=== PATIENT | male | born 1950 | race Caucasian/White ===

== ENCOUNTER 2019-02-11 12:06 | Emergency (ER) | payer OTHER ==
[~2019-02-11] VITALS: Ht 193 cm; Wt 74.8 kg
[~2019-02-11 12:06] MED LIST: ACETAMINOPHEN325 M1 PO; ASPIRIN EC325 M1 PO; ASPIRIN EC81 M1 PO; AUGMENTIN 875875 M1 PO; CAVAN-FOLATE D1 EACH PO; CELEXA 10 MG TA10 M1 PO; COLACE100 MG PO; COZAAR 50 MG TA50 M1 PO; IRON325 PO; KEFLEX500 MG PO; KEPPRA 500 MG500 M1 PO; KEPPRA 500 MG500 MG PO; KLOR-CON 10 ER10 MEQ PO; KLOR-CON 1010 MEQ PO; LASIX 40 MG TAB40 M1 PO; LISINOPRIL10 MG PO; LOPRESSOR25; NICOTINE TRANSD14 M1 TRANSDERM; NYSTATIN15 GM TOP; PLAVIX 75 MG TA75 M1 PO; TOPROL XL25 MG PO; UNASYN 3 GM VIAL3 G1 IV; VITAMIN B-1100 M1 PO; ZOCOR 20 MG TAB20 M1 PO
[2019-02-11 12:22] LABS: BASOPHILS 0.2 % (0.0-2.0); EOSINOPHILS 1.4 % (0.0-3.0); HEMOGLOBIN 15.4 gm/dL (14.0-18.0); LYMPHOCYTES 22.1 % (24.0-44.0); MCH 30.6 pg (26.0-34.0); MCHC 34.2 g/dL (28.0-37.0); MCV 89.5 fL (80.0-100.0); MONOCYTES 7.3 % (1.0-8.0); RBC 5.03 mil/uL (4.50-6.00); WBC 11.7 thou/uL (4.0-11.0)
[2019-02-11 13:04] LABS: ANION GAP 12 mmol/L (7-16); BUN 22 mg/dL (7-18); CALCIUM 8.4 mg/dL (8.5-10.1); CHLORIDE 102 mmol/L (98-107); CO2 23 mmol/L (21-32); GLUCOSE 93 mg/dL (74-106); SODIUM 137 mmol/L (136-145)
[2019-02-11 13:14] LABS: ALBUMIN 3.4 g/dL (3.4-5.0); SGOT 28 U/L (15-37); SGPT 16 U/L (30-65); TOTAL BILIRUBIN 0.3 mg/dL (<0.1-1.0); TOTAL PROTEIN 6.7 g/dL (6.4-8.2); TROPONIN-I <0.06 ng/mL (<0.06)
[2019-02-11 13:17] LABS: URINE BILIRUBIN NEGATIVE (Negative); URINE BLOOD NEGATIVE (Negative); URINE CLARITY CLEAR; URINE COLOR YELLOW; URINE GLUCOSE-RANDOM* NEGATIVE (Negative); URINE KETONES NEGATIVE (Negative); URINE LEUKOCYTES-REFLEX NEGATIVE (Negative); URINE NITRITE-REFLEX NEGATIVE (Negative); URINE PROTEIN (DIPSTICK) NEGATIVE (Negative); URINE SPECIFIC GRAVITY <= 1.005 (1.005-1.035); URINE UROBILINOGEN 0.2 E.U./dl (0.2-1.0)
[2019-02-11 13:24] LABS: PLATELET COUNT 102 thou/uL (150-400); PLATELET ESTIMATE SLIGHTLY DECREASED
[2019-02-11 13:25] LABS: LARGE PLATELETS FEW
[2019-02-11 13:25] LABS: AMP/METHAMP Negative (Negative); BARBITURATES Negative (Negative); BENZODIAZEPINES Negative (Negative); COCAINE Negative (Negative); METHADONE Negative (Negative); OPIATES Negative (Negative); PCP Negative (Negative)
--- NOTE | 2019-02-11 17:18 | EKG ---
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 : 1950 Requested By: Dashawn Castro Order Number: [id number] MD: Arsh Vasquez Measurements Intervals [place] Rate: 54 P: -51 PA: 180 QRS: -63 QRSD: 141 T: 94 QT: 499 QTc: 473 Interpretive Statements Sinus bradycardia Left bundle branch block Baseline wander in lead(s) V4,V5 Compared to ECG 07/28/2016 16:08:20 Ventricular premature complex(es) no longer present Electronically Signed On 02-11-2019 17:17:52 CDT by Arsh Vasquez [email or web address] ��������������������������������������������� <ELECTRONICALLY SIGNED> ���������������������������������������� By: Arsh Vasquez MD, [facility] ��������������������������������������������� 02/11/19 1717 1310 09 Arsh Vasquez MD, [facility] /EPI
[2019-02-11 17:54] VITALS: BP 156/78
== END 2019-02-11 17:57 | disposition home or self-care (01) ==
LOC: ER 12:06
PROVIDERS: Physician Assistant
DX: S09.8XXA Other specified injuries of head, initial encounter (principal); R41.82 Altered mental status, unspecified; F10.129 Alcohol abuse with intoxication, unspecified; F17.210 Nicotine dependence, cigarettes, uncomplicated; I73.9 Peripheral vascular disease, unspecified; J44.9 Chronic obstructive pulmonary disease, unspecified; I25.10 Atherosclerotic heart disease of native coronary artery without angina pectoris; E78.5 Hyperlipidemia, unspecified; Z90.49 Acquired absence of other specified parts of digestive tract; X58.XXXA Exposure to other specified factors, initial encounter; Y92.89 Other specified places as the place of occurrence of the external cause; Y93.89 Activity, other specified; Y99.8 Other external cause status

== ENCOUNTER 2019-04-09 13:39 | Emergency (ER) | payer OTHER ==
[~2019-04-09] VITALS: Ht 193 cm; Wt 73.9 kg
[2019-04-09] MEDS ORDERED: BACTRIM DS TAB1 EACH PO (15:13)
[2019-04-09 16:02] VITALS: BP 155/79
== END 2019-04-09 15:30 | disposition home or self-care (01) ==
LOC: ER 13:39
DX: L02.11 Cutaneous abscess of neck (principal); F17.210 Nicotine dependence, cigarettes, uncomplicated; I73.9 Peripheral vascular disease, unspecified; J44.9 Chronic obstructive pulmonary disease, unspecified; Z90.49 Acquired absence of other specified parts of digestive tract

== ENCOUNTER 2019-07-09 12:50 | Inpatient (IN) | payer OTHER ==
[~2019-07-09] VITALS: Ht 193 cm; Wt 69.4 kg
--- NOTE | ~2019-07-09 | EMS ---
[address] [address] EMS Patient Care Report Name: YUE NOONAN Room #: REG GRETA Suárez#: [id number] Admission: 07/09/19 Attend Phys: Discharge: Date of : 48 Report #: [id number] THIS REPORT FOR: //name// Report Transmitted: 07/09/2019 13:04 EMS Care Summary [facility] MED-ACT Incident [id number] @ 07/09/2019 11:59 Incident Location [address] [place] [address] Patient YUE NOONAN Male, 68 Years 1950 Patient Address [address] [place] [address] Patient History Seizures,Cardiac Condition - Other,Alcohol Abuse, Patient Allergies No known allergies, Patient Medications None Reported, Chief Complaint Left hip pain after fall Disposition Transported No Lights/[place] [facility] Reason Falls Transported To [facility] Narrative Pt is found sitting in a chair in his living room in no acute distress in care of FD. Pt states that he slipped on a puddle of water in his bathroom landing [address] [address] EMS Patient Care Report Name: YUE NOONAN Room #: REG GRETA Suárez#: [id number] Admission: 07/09/19 Attend Phys: Discharge: Date of : 48 Report #: [id number] on his back. Pt states that he crawled back to his chair and waited several minutes before calling EMS. Pt c/o left hip pain and states that the pain has remained. Pt states that he only has pain when he moves. Pt states that he has not tried to bear weight since the fall. Pt denies striking his head or loss of consciousness. Pt denies neck and back pain. Pt is lifted to cot where he is seated and secured without incident. Pt is sheet lifted to ER bed without incident and report to RN. Initial Vitals @PTAP: 73,SpO2: 95,NC Suspected: false @12:30P: 68,SpO2: 93, @12:40P: 70,SpO2: 93, @PTAP: 89,R: 14,BP: 176/79,Pain: 7/10,SpO2: 95,NC Suspected: false @PTAP: 80,R: 14,BP: 156/71,SpO2: 96, @12:35P: 66,R: 16,BP: 177/74,SpO2: 93, @12:25P: 71,R: 14,BP: 178/72,GCS: 15,SpO2: 95,Revised Trauma: 12, Assessments @12:25MENTAL:Person Oriented,Time Oriented,Place Oriented,Event Oriented,SKIN:HEENT:Head/Face: No Abnormalities,Neck/Airway: No Abnormalities,LUNG SOUNDS:General: No Abnormalities,ABDOMEN:General: No Abnormalities,PELVIS//GI:Tenderness,EXTREMITIES:Left Arm: No Abnormalities,Right Arm: No Abnormalities,Left Leg: No Abnormalities,Right Leg: No Abnormalities,PULSE:NEURO:No Abnormalities, Impression Injury of Hip Procedures @12:1512-Lead ECGResponse: UnchangedSucceeded Timeline TRANSPORTATION AGENT,BP: / M,PULSE: 73,RR: R,SPO2: 95 Ox,ETCO2: ,BG: ,PAIN: ,GCS: , TRANSPORTATION AGENT,BP: 176/79 M,PULSE: 89,RR: 14 R,SPO2: 95 Ox,ETCO2: ,BG: ,PAIN: 7,GCS: , TRANSPORTATION AGENT,BP: 156/71 M,PULSE: 80,RR: 14 R,SPO2: 96 Ox,ETCO2: ,BG: ,PAIN: ,GCS: , 11:57,Call Received 11:57,Psap Call 11:59,Dispatched 11:59,En Route 12:09,On Scene 12:13,At Patient 12:15,12-Lead ECG,Response: UnchangedSucceeded, 12:25,BP: 178/72 M,PULSE: 71,RR: 14 R,SPO2: 95 Ox,ETCO2: ,BG: ,PAIN: ,GCS: 15, 12:25,Depart Scene 12:30,BP: / M,PULSE: 68,RR: R,SPO2: 93 Ox,ETCO2: ,BG: ,PAIN: ,GCS: , 12:35,BP: 177/74 M,PULSE: 66,RR: 16 R,SPO2: 93 Ox,ETCO2: ,BG: ,PAIN: ,GCS: , [facility] [address] [place] [place] [address] EMS Patient Care Report Name: YUE NOONAN Room #: REG GRETA Suárez#: [id number] Admission: 07/09/19 Attend Phys: Discharge: Date of : 48 Report #: [id number] 12:40,BP: / M,PULSE: 70,RR: R,SPO2: 93 Ox,ETCO2: ,BG: ,PAIN: ,GCS: , 12:47,At Destination 13:00,Call Closed Disclaimer v1.1 Copyright 2019 [employer] This EMS Care Summary contains data elements from the applicable legal record (which may be displayed differently). It is designed to provide pertinent information for the following purposes: continuity of care, clinical quality, and state data reporting. The complete legal record is available to ED staff and administrators of the receiving hospital in [employer]'s Patient Tracker. All data is provided "as is."
[~2019-07-09 12:50] MED LIST changes: +BACTRIM DS TAB1 EACH PO
[2019-07-09 12:51] VITALS: BP 120/72
[2019-07-09 13:33] LABS: HEMATOCRIT 47.5 % (42.0-52.0); HEMOGLOBIN 15.7 gm/dL (14.0-18.0); MCH 30.6 pg (26.0-34.0); MCV 92.8 fL (80.0-100.0); RBC 5.12 mil/uL (4.50-6.00); RDW 15.4 % (10.5-14.5); WBC 12.7 thou/uL (4.0-11.0)
[2019-07-09 13:35] LABS: URINE BILIRUBIN NEGATIVE (Negative); URINE BLOOD NEGATIVE (Negative); URINE CLARITY CLEAR; URINE COLOR YELLOW; URINE GLUCOSE-RANDOM* NEGATIVE (Negative); URINE KETONES 1+ (Negative); URINE LEUKOCYTES-REFLEX NEGATIVE (Negative); URINE NITRITE-REFLEX NEGATIVE (Negative); URINE PROTEIN (DIPSTICK) TRACE (Negative); URINE SPECIFIC GRAVITY >= 1.030 (1.005-1.035); URINE UROBILINOGEN 0.2 E.U./dl (0.2-1.0)
[2019-07-09 13:40] LABS: CALCIUM 9.3 mg/dL (8.5-10.1); CREATININE 1.2 mg/dL (0.7-1.3); POTASSIUM 4.4 mmol/L (3.5-5.1)
[2019-07-09 13:45] LABS: APTT 29.5 Seconds (24.5-32.8); PROTIME 10.9 Seconds (9.3-11.4)
[2019-07-09 17:12] VITALS: BP 133/64
[2019-07-09 17:32] LABS: CHOLESTEROL 181 mg/dL (<200); HDL CHOLESTEROL 71 mg/dL (>40); LDL CHOLESTEROL 96 mg/dL (<100); TC:HDL 2.5 Ratio (Not establshd); TRIGLYCERIDE 73 mg/dL (<150); VLDL 15 mg/dL (<40)
[2019-07-09 17:33] LABS: SERUM ASSESSMENT Clear
[2019-07-09 17:34] VITALS: BP 137/58
[2019-07-09 17:48] VITALS: BP 154/58
[2019-07-09 17:58] LABS: FOLIC ACID 11.2 ng/mL (8.6-58.9)
--- NOTE | 2019-07-09 18:42 | NUR ---
PATIENT ARRIVED TO UNIT VIA CART TRANSFERRED BY ED STAFF. PATIENT DENIES PAIN EXCEPT WHEN BEING TRANSFERRED FROM CART TO BED. CONSENTS SIGNED, ADMISSION COMPLETED EXCEPT FOR PICTURES OF WOUNDS. WILL PASS TO NEXT SHIFT IN REPORT. FALL PRECAUTIONS IN PLACE, AGREES TO CALL FOR ASSIST.
[2019-07-09 18:59] VITALS: BP 117/47
--- NOTE | 2019-07-10 02:19 | NUR ---
ASSUMED CARE OF PT @1900. PT A&OX4. PT FELL AT HOME IN A BATHTUB, UNTO HIS BOTTOCKS, HE SAID. FALL PREC IN PLACE. CALL CAMPOS WITHIN REACH. PT IS ON BEDREST FOR NOW UNTIL ORTHO SEES HIM. PT C/O OF SHOULDER PAIN, HE DOES NOT REMEMBER FALLING ON HIS SHOULDER. PT STATED IT COULD BE FROM HIM TRYING TO MOVE OVER TO HIS CHAIR AFTER THE FALL. PAIN WAS CONTROLLED WITH NARCO. PT HAS A WOUND IN HIS LEFT GREAT TOE. PT STATED THAT HE PULLED OUT HIS LEFT GREAT TOE WHILE HE WAS TRYING TO TAKE OFF HIS PANTS. PICTURE WAS TAKEN. PT HAS A BRUISED RIGHT ARM. PT BOTTOCKS IS PINK AND BLANCHEABLE, BARRIER CREAM WAS APPLIED. PT IS Q2HR TURN. NO S/S OF DISTRESS. WILL CONT TO MONITOR
[2019-07-10 05:45] VITALS: BP 142/51
[2019-07-10 07:26] VITALS: BP 143/54
--- NOTE | 2019-07-10 10:57 | NUR ---
WOUND CARE CONSULT; THIS ANGRY MAN HAS HAD A FALL IN HIS HOME. HE HAS HX OF A NECK ABCESS AND A SACRAL FRACTURE. WITH A LITTLE HELP AND A WALKER FOR BALANCE HE STOOD VERY WELL. THERE ARE NO WOUNDS TO THE BUTTOCK AREA(S) AND EVERTHING BLANCHES WELL. THE LEFT GREAT TOE IS MISSING THE TOENAIL. HE REPORTS IT WAS NOT FROM THE FALL BUT IN FACT THE TOENAIL CAUGHT ON HIS SOCK A FEW DAYS AGO AND WAS TORN OFF. RECOMMENDATIONS; THE PATIENT DID NOT WANT A BULKY DRESSING, I CHOSE [employer]ERO[employer], COVERED WITH A BANDAID, DAILY/PRN DISCUSSED WITH ILDEFONSO
--- NOTE | 2019-07-10 14:12 | NUR ---
PT ADMITTED RELATED TO SUBTLE NONDISPLACED SACRAL ALA FRACTURE. CM REVIEWED CHART AND SPOKE WITH CARE TEAM. CM MET WITH PT AT BEDSIDE THIS DAY. PT IS A&O X4. CM ROLE INTRODUCED. PT INDICATED HE HAD BEEN LIVING IN AN APARTMENT WITH HIS SISTER MEAL ROOM HAND. PT INDICATED HE HAD USED A CANE TO ASSIST WITH MOBILTIY MEAL ROOM HAND. PT INDICATED NO PCP OR HH HX. CM INDICATED THAT [facility] SHOWED THAT PT HAD BEEN TO [facility] IN THE PAST BUT PT DIDN'T RECALL EVER HAVING BEEN THERE. PT INDICATED HE PLAND TO RETURN HOME WITH HIS SISTER ONCE MEDICALLY STABLE. CM CALLED PT'S SISTER AND LEFT VM. 5N ASSESSED PT FOR POSSIBLE ADMISSION BUT THEY INDICATED THAT SNF WOULD BE MORE APPROPRIATE. CM TO FOLLOW INDICATED WITH DC PLANNING.
--- NOTE | 2019-07-10 14:13 | NUR ---
PATIENT WAS SEEN BY ZAC MORRIS NP WITH DR. HIRSCH. PATIENT DOES NOT HAVE A REHAB DX AND SNF WAS RECOMMENDED D/C LOCATION. THIS INFORMATION WAS RELAYED TO [facility]. THANK YOU FOR THIS REFERRAL.
[2019-07-10 19:35] VITALS: BP 126/49
--- NOTE | 2019-07-10 20:12 | NUR ---
Assumed pt care this am, pt is alert and oriented x4 but is very forgetful and not consistent with his train of throught. Left big toe nail was noted to be a wound and nail was removed, seed by woundcare and dressing done. Pt denies any pain just a slight discomfort, when pain medicationms were offered pt refused. Pt sat in his recliner for most ofthe day. Was seen by Chan in the am, was asked to put pt on NPO consent signed for Jumana to do an abdominal aortogram w/ the lower left leg: possible percutaneous transluminal angioplasty and/ or stent, this did not push through. Placed back on a regular diet and this was well tolereated. POC followed, no signs or verbalizations of distress have been noted.
--- NOTE | 2019-07-11 03:55 | NUR ---
assessment completed. pt A&OX4. pt was irritated that we had to clean him up for incont of urine. x1 does of thiamine infusion was administered. pt accidentally pulled out his iv. pt stated it was itching, so he went to scratch, and it came off per pt. a new iv was placed on pt right forearm. pt has been both incont and using the urinal overnight. pt mentioned going out for a cigarette, education was done and pt accepted to get nicotin patch. order for nicotin 21mg patch was recieved. no c/o pain overnight. toe dressing intact. no s/s of distress. fall prec in place. call light within reach. ciwa score O.
[2019-07-11 05:44] LABS: ABSOLUTE NEUTROPHILS 6.7 thou/uL (1.4-8.2); BASOPHILS 0.4 % (0.0-2.0); EOSINOPHILS 3.9 % (0.0-3.0); HEMATOCRIT 42.7 % (42.0-52.0); HEMOGLOBIN 14.2 gm/dL (14.0-18.0); LYMPHOCYTES 9.4 % (24.0-44.0); MCHC 33.4 g/dL (28.0-37.0); MONOCYTES 4.4 % (1.0-8.0); PLATELET COUNT 72 thou/uL (150-400); POLYS 81.9 % (36.0-66.0); RBC 4.59 mil/uL (4.50-6.00); RDW 15.5 % (10.5-14.5); WBC 8.2 thou/uL (4.0-11.0)
[2019-07-11 06:24] LABS: ALBUMIN 3.1 g/dL (3.4-5.0); CALCIUM 8.3 mg/dL (8.5-10.1); MAGNESIUM 1.7 mg/dL (1.8-2.4); PHOSPHORUS 2.5 mg/dL (2.5-4.9); POTASSIUM 3.9 mmol/L (3.5-5.1); TOTAL BILIRUBIN 0.7 mg/dL (<0.1-1.0); TOTAL PROTEIN 6.4 g/dL (6.4-8.2)
[2019-07-11 08:30] VITALS: BP 151/70
--- NOTE | 2019-07-11 09:44 | 2DMMODE ---
[facility] [employer] [place] [address] 2 D/M-MODE ECHOCARDIOGRAM Name: SARANYUE Room #: 453-P ADM IN M.R.#: [id number] Admission: 07/09/19 Attend Phys: Colleen Roe, Discharge: Date of : 48 Report #: [id number] THIS REPORT FOR: //name// APPROVED REPORT Study performed: 07/11/2019 08:24:27 EXAM: Comprehensive 2D, Doppler, and color-flow Echocardiogram Patient Location: Echo lab Room #: 453 Status: routine BSA: 1.98 HR: 69 bpm BP: 126/49 mmHg Rhythm: NSR/PVCs Indications Hx of cardiomyopathy. Hx: CABG, COPD, PVD, Aflutter, HTN, HLP, ETOH and Tob abuse. 2D Dimensions RVDd: 35.98 mm IVSd: 12.00 (7-11mm) LVOT Diam: 22.16 (18-24mm) LVDd: 62.00 mm PWd: 12.00 (7-11mm) LVDs: 51.24 (25-40mm) Aortic Root: 37.11 mm Volumes Left Atrial Volume (Systole) Single Plane 4CH: 42.24 mL Single Plane 2CH: 59.30 mL LA ESV Index: 28.00 mL/m2 Aortic Valve AoV Peak Cristian.: 2.47 m/s AO Peak Gr.: 9.99 mmHg LVOT Max P.31 mmHg AO Mean Gr.: 17.54 mmHg AO V2 Mean: 2.02 m/s LVOT Max V: 0.91 m/s AO V2 VTI: 59.68 cm ESAU Vmax: 1.42 cm2 Mitral Valve E/A Ratio: 0.4 MV Decel. Time: 227.94 ms MV E Max Cristian.: 0.34 m/s [facility] [id number] [place] [address] 2 D/M-MODE ECHOCARDIOGRAM Name: SARAN,YUE Room #: 453-P [facility] IN .R.#: [id number] Admission: 07/09/19 Attend Phys: Colleen Roe, Discharge: Date of : 48 Report #: [id number] MV A Cristian.: 0.76 m/s MV PHT: 66.10 ms IVRT: 96.89 ms Pulmonary Valve PV Peak Cristian.: 0.96 m/s PV Peak Gr.: 3.66 mmHg Tricuspid Valve TR Peak Cristian.: 2.71 m/s RAP Estimate: 5.00 mmHg TR Peak Gr.: 29.46 mmHg PA Pressure: 34.00 mmHg Left Ventricle Left ventricle is moderately dilated. global hypokinesis Mild concentric left ventricular hypertrophy. Left ventricular systolic function is moderately decreased. LVEF is 40%. Mild diastolic dysfunction is present (impaired relaxation pattern). Right Ventricle The right ventricle is normal size. The right ventricular systolic function is normal. Atria The left atrium size is normal. The right atrium size is normal. Aortic Valve Aortic valve leaflets are mildly thickened and calcified. Moderate to severe aortic regurgitation There is mild valvular aortic stenosis. Calculated aortic valve area is 1.4 cm2 with maximum pressure gradient of 24 mmHg and mean pressure gradient of 18 mmHg. Mitral Valve Mitral valve leaflets are thickened and calcified. Severe mitral regurgitation. No evidence of mitral valve stenosis. Tricuspid Valve The tricuspid valve is normal in structure. Mild tricuspid regurgitation. Estimated PAP is 35mmHg. Pulmonic Valve The pulmonary valve is normal in structure. Trace pulmonic regurgitation. Great Vessels The aortic root is normal in size. Ascending aorta is not well [address] [address] 2 D/M-MODE ECHOCARDIOGRAM Name: SARAN,YUE Room #: 453-P [facility] IN .R.#: [id number] Admission: 07/09/19 Attend Phys: Colleen Roe, Discharge: Date of : 48 Report #: [id number] visualized. IVC is normal in size and collapses >50% with inspiration. Pericardium There is no pericardial effusion. <Conclusion> Left ventricle is moderately dilated. LVEF is 40%. global hypokinesis Aortic valve leaflets are mildly thickened and calcified. Moderate to severe aortic regurgitation There is mild valvular aortic stenosis. Calculated aortic valve area is 1.4 cm2 with maximum pressure gradient of 24 mmHg and mean pressure gradient of 18 mmHg. Mitral valve leaflets are thickened and calcified. Severe mitral regurgitation. The tricuspid valve is normal in structure. Mild tricuspid regurgitation. Estimated PAP is 35mmHg. The pulmonary valve is normal in structure. Trace pulmonic regurgitation. There is no pericardial effusion. <ELECTRONICALLY SIGNED> By: Praveen Chun MD 07/11/1944 2 Praveen Chun MD /INF
--- NOTE | 2019-07-11 16:48 | NUR ---
PT REFUESED SKILLED RHEAB UPON DC INDICATING HE WON'T GO TO A FACILITY FOR REHAB. CM CAN'T GET A HOLD OF HIS SISTER OR EX-. CM SENT REFERAL FOR SERVICES TO [facility] PHONE: FAX: .
--- NOTE | 2019-07-11 17:25 | NUR ---
FAXED REFERRAL TO [facility] RECEIVED CONFIRMATION. POSS DC OVER WEEKEND.
--- NOTE | 2019-07-11 19:55 | NUR ---
Assumed pt care this am, confusion is not a severe as compared to yesteday. Pt complained of pain when he was moved , managed with pain medications. Spent most part of his day on the recliner, refuses to have lunch or breakfast and would only have coffee then his dinner. No other signs of distress have been noted, POC followed, according to Dr. Roe pt refused the procedure yesterday unit was not informed, but agreed to do it today Dr. Denney is not in and will be back on Sunday informed Dr. Roe as well.
[2019-07-11 20:33] VITALS: BP 140/59
--- NOTE | 2019-07-11 22:48 | NUR ---
Pt. c/o sacral pain and was given po pain med with some relief noted. Assisted up from chair to bed with two person,gait belt and walker. Bed alarm on.
--- NOTE | 2019-07-12 00:21 | NUR ---
THIS NURSE ACCEPTED CARE OF PATIENT AT APPROXIMATELY 2300 DUE TO PREVIOUS NURSE BEING REASSIGNED. PATIENT REMAINS IN THE BED ASLEEP. ALL MEDS UP TO THIS TIME GIVEN BY PREVIOUS NURSE. WILL MONITOR.
--- NOTE | 2019-07-12 04:08 | NUR ---
PATIENT ALERT AND ORIENTED X4. DENIES PAIN. COOPERATIVE WITH CARE. RESTING QUIETLY THROUGHOUT THE NIGHT. SCD'S IN PLACE. WILL MONITOR.
[2019-07-12 04:52] VITALS: BP 139/49
[2019-07-12 08:00] VITALS: BP 141/55
[2019-07-12 10:32] LABS: HEMATOCRIT 44.7 % (42.0-52.0); HEMOGLOBIN 14.9 gm/dL (14.0-18.0); MCH 30.7 pg (26.0-34.0); MCHC 33.2 g/dL (28.0-37.0); MCV 92.5 fL (80.0-100.0); RBC 4.83 mil/uL (4.50-6.00); RDW 15.4 % (10.5-14.5)
[2019-07-12 10:41] LABS: AMP/METHAMP Negative (Negative); BARBITURATES Negative (Negative); BENZODIAZEPINES Negative (Negative); COCAINE Negative (Negative); METHADONE Negative (Negative); OPIATES POSITIVE (Negative); PCP Negative (Negative)
[2019-07-12 10:46] LABS: CALCIUM 9.2 mg/dL (8.5-10.1); CREATININE 1.2 mg/dL (0.7-1.3); PHOSPHORUS 3.3 mg/dL (2.5-4.9); POTASSIUM 4.3 mmol/L (3.5-5.1)
--- NOTE | 2019-07-12 11:50 | EKG ---
[address] [address] ELECTROCARDIOGRAM REPORT Name: YUE NOONAN Room #: 437-P ADM IN M.R.#: [id number] Admission: 07/09/19 Attend Phys: Colleen Roe MD Discharge: Date of : 48 Report #: [id number] THIS REPORT FOR: //name// [facility] Test Date: 2019-07-11 Test Time: 09:01:34 Pat Name: YUE NOONAN Department: Room: [facility] Gender: M [place] [place] Cleaner: PASCUAL : 1950 Requested By: Colleen Roe Order Number: [id number] MD: Arsh Vasquez Measurements Intervals [place] Rate: 69 P: 66 SD: 192 QRS: -56 QRSD: 132 T: 100 QT: 432 QTc: 463 Interpretive Statements Sinus rhythm Left bundle branch block Compared to ECG 02/11/2019 13:10:35 Sinus bradycardia no longer present Electronically Signed On 07-12-2019 11:50:10 CDT by Arsh Vasquez [email or web address] <ELECTRONICALLY SIGNED> By: Arsh Vasquez MD, [facility] 07/12/19 1150 09 0 Arsh Vasquez MD, [facility] /EPI
[2019-07-12 15:00] VITALS: BP 117/59
[2019-07-12 19:22] VITALS: BP 128/65
--- NOTE | 2019-07-12 19:43 | NUR ---
Assumed pt care this am vs stable, pain was verbalized with movement, managed with medication. Pt stayed on his recliner for most fo the day. Uses the urinal but would miss at times and be incontinent. No other signs of distress have been noted, POC followed, endorsed to the night nurse.
--- NOTE | 2019-07-13 04:31 | NUR ---
Pt. rested quietly at intervals during the night when checked on during frequent rounds. He was given po pain med (see emar) for c/o sacral pain with some relief noted. Bed alarm is on.
[2019-07-13 10:11] VITALS: BP 140/55
[2019-07-13 15:44] VITALS: BP 140/72
--- NOTE | 2019-07-13 17:21 | NUR ---
Assumed pt care this am, pt was pleasant and cooperative. Pt did complain of pain when he moved medication was given and pain managed. Pt opted to stay in bed for most of the day. Used the urinal, no BM was noted miralax given hydration encouraged. Pt is to be on NPO midnight onwards for possible stenting tomorrow w/ Dr. Denney. Endorsed to the pm nurse to call IR department for the schedule and to inform Dr. Roe if procedure will push through since pt will be NPO. CIWA assessment done no significant scores were noted no medication was or is needed or given. POC followed no signs or verbalizations of distress have been noted. Pt is informed of the plan for tomorrow.
[2019-07-13 19:20] VITALS: BP 139/68
[2019-07-14] VITALS (11 sets, daily range): BP systolic 97–166; BP diastolic 60–77
--- NOTE | 2019-07-14 04:17 | NUR ---
Pt. rested quietly during the night when checked on during frequent rounds. Pt. was offered po pain medication during the shift, but he refused. Pt. says he is in pain only when he moves. Pt. encouraged to call if he needed anything for pain. He has been using the urinal. Bed alarm is on.
[2019-07-14 06:06] LABS: ABSOLUTE NEUTROPHILS 4.1 thou/uL (1.4-8.2); BASOPHILS 0.5 % (0.0-2.0); EOSINOPHILS 4.4 % (0.0-3.0); HEMATOCRIT 43.5 % (42.0-52.0); HEMOGLOBIN 14.6 gm/dL (14.0-18.0); LYMPHOCYTES 20.8 % (24.0-44.0); MCHC 33.6 g/dL (28.0-37.0); MCV 92.2 fL (80.0-100.0); MONOCYTES 8.5 % (1.0-8.0); POLYS 65.8 % (36.0-66.0); RBC 4.72 mil/uL (4.50-6.00); RDW 15.5 % (10.5-14.5); WBC 6.3 thou/uL (4.0-11.0)
[2019-07-14 06:30] LABS: ALBUMIN 3.1 g/dL (3.4-5.0); CALCIUM 9.3 mg/dL (8.5-10.1); CREATININE 1.1 mg/dL (0.7-1.3); PHOSPHORUS 4.3 mg/dL (2.5-4.9); POTASSIUM 4.6 mmol/L (3.5-5.1); TOTAL BILIRUBIN 0.6 mg/dL (<0.1-1.0); TOTAL PROTEIN 7.1 g/dL (6.4-8.2)
[2019-07-14 08:59] LABS: LARGE PLATELETS FEW; PLATELET COUNT 90 thou/uL (150-400); PLATELET ESTIMATE DECREASED
--- NOTE | 2019-07-14 09:18 | NUR ---
Received awake on bed. On room air. A+O to self and place, possible early dementia. Able to use urinal to pass urine. With SL at R FA- intact and flushing well. On CIWA monitoring- patient scoring 0. With wound at R toe nail- dressing to be changed and photo to be taken. Vital signs stable. As per material handler 1st shift nurse, to confirm with IR re: Arteriogram schedule, pt was placed on NPO this AM as reported. Called in IR and spoke to staff, she mentioned that pt is not listed for today, possibly to have it done as outpatient but to confirm with Dr Dugan; Called Dr Dugan's office to confirm re: Arteriogram schedule- pt updated. Assisted in ADLs.
--- NOTE | 2019-07-14 09:23 | NUR ---
SPOKE WITH INTAKE AT [facility] THEY DO NOT SERVE THE [place] SIDE WHICH IS WHERE PT IS DISCHARGING TO HIS SISTER'S HOUSE. DCP TO FOLLOW.
--- NOTE | 2019-07-14 13:51 | NUR ---
WOUND CARE F/U; THE TOE WOUND IS 50% BETTER. NO PAIN, NO S/S OF INFECTION. PT IS PLEASANT AND COORPERATIVE. RECOMMENDATION; CONTINUE CURRENT WOUND POC. DISCUSSED WITH RN
--- NOTE | 2019-07-14 14:03 | NUR ---
CM HAD LEFT VOICEMAILS FOR PT'S SISTER AND HIS EX- SUNDAY OF LAST WEEK AND CM HASN'T HEARD BACK FROM THEM OF THIS NOTE. CM CALLED BOTH AGAIN THIS MORNING AND LEFT ADDITIONAL VOICEMAILS. STILL NO RESPONSE. CARE TEAM WERE LOOKING TO DO AN ANGIOGRAM TODAY. CM TO FOLLOW INDICATED WITH DC PLANNING.
[2019-07-15 07:38] VITALS: BP 138/59
--- NOTE | 2019-07-15 08:51 | NUR ---
progress pt alert oriented x 3 reports pain to sacrum at a rate of 5 hydrocodone given with effect pt slept after repositioned q2h. incontinent of urine x 2 tolerating diet and good po intake continue poc.
--- NOTE | 2019-07-15 10:11 | NUR ---
Received awake on bed. Due medications given as prescribed, able to swallow meds w/o difficulty. A+O, on and off confusion- ?early dementia, pt re-oriented from time to time. On room air. With NS1/2 at 75cc/hr, infusing well at L FA- swelling noted, IV removed, tried to re-site but pt's vein keeps on collapsing- called in IV nurse to help with re-insertion. Assisted in ADLs. Occassional incontinence noted. Vital signs stable. Checked post arteriogram site from yesterday, dressing currently C/D/I, no hematoma noted. No complaints of pain made upon assessment this AM. Dr Rick update re: pt's consult with DR Scott- still a/w for him to see pt today, and informed her that we still can't contact pt's DPOA/relatives.
[2019-07-15 13:40] VITALS: BP 150/57
--- NOTE | 2019-07-15 14:45 | NUR ---
Nutrition: REC consider start vitamin with folic acid due to daily ETOH hx.
--- NOTE | 2019-07-15 16:24 | NUR ---
PT HAD ANGIOGRAM DONE YESTERDAY. THEY HAVE CONSULTED [facility]. CM STILL UNABLE TO REACH SISTER OR EX-. CM TO FOLLOW INDICATED WITH DC PLANNING.
[2019-07-15 19:20] VITALS: BP 103/55
--- NOTE | 2019-07-16 03:56 | NUR ---
Assumed pt care at 1900. Pt is A/OX2,and fussy didn't want to answer much on assessment. Incontinent of urine. Up with AX1 RW/GB from recliner to bed. VSS.Denied pain on assessment. IVF infusing without problems. Fall precautions in place,will continue to monitor pt.
[2019-07-16 06:27] LABS: HEMATOCRIT 42.2 % (42.0-52.0); HEMOGLOBIN 14.1 gm/dL (14.0-18.0); MCH 30.7 pg (26.0-34.0); MCHC 33.3 g/dL (28.0-37.0); MCV 92.1 fL (80.0-100.0); RBC 4.58 mil/uL (4.50-6.00); WBC 9.9 thou/uL (4.0-11.0)
[2019-07-16 06:48] LABS: CALCIUM 9.2 mg/dL (8.5-10.1); CREATININE 1.1 mg/dL (0.7-1.3)
[2019-07-16 08:26] VITALS: BP 137/59
--- NOTE | 2019-07-16 11:30 | NUR ---
WOUND CARE F/U; THE LEFT GREAT TOE WOUND IS MARKEDLY IMPROVED. NO S/S OF INFECTION. RECOMMENDATION; CONT. POC RN NOTIFIED
--- NOTE | 2019-07-16 11:57 | NUR ---
Received awake on bed. Due medications given as prescribed. A+O to self and place, early dementia. On room air. Incontinent of urine- pt checked regularly and changed as needed. With SL at R FA- intact and flushing well. With dressing at R groin- post arteriogram, dressing removed, area cleaned and changed to bandaid as ordered. With L toe wound- cleaned and dressing changed by wound nurse. Encouraged and assisted in eating, drinking and ADLs. Vital signs stable. Pt seen by PT today, tolerated session well, able to walk around the hallway, sat out on the chair. Dr Rick informed that pt's confusion getting worse, occassionally becomes frustrated, refusing therapies or staff. Pt assessed for pain, denies and refuses pain medications; offered pain meds frequently as needed.
--- NOTE | 2019-07-16 13:09 | NUR ---
PALOMA WAS FINALLY ABLE TO GET A HOLD OF PT'S EX- EBER. SHE INDICATED THAT SHE DIDN'T THINK THAT PT HAD FORMAL DPOA. SHE INDICATED THAT SHE WOULD BE WILLING TO BE PT'S DPOA. PALOMA REACHED OUT TO DR. BOURGEOIS TO SEE IF SHE FELT THAT PT WOULD BE ABLE TO ELECT A DPOA AT THIS TIME. AWAITING RESPONSE. PALOMA CONVEYED TO EBER THAT CARE TEAM ARE RECOMMENDING POST ACUTE CARE STAY TO IMPROVE MOBILITY. SHE INDICATED THAT SHE WOULD BE AGREEABLE WITH PT GOING SKILLED AND STATED THAT SHE WOULD COME VISIT WITH PT HERE AND DISCUSS POST DC PLANNING. CM TO FOLLOW INDICATED WITH DC PLANNING.
[2019-07-16 15:35] VITALS: BP 145/54
[2019-07-16 19:30] VITALS: BP 147/62
--- NOTE | 2019-07-17 05:09 | NUR ---
Assumed pt care at 1900. A/OX2-3,able to make needs known. VSS.Denies pain on assessment. Up with moderate assist w/RW and GB. Incontinent of B&B,gets irritable easily especially with ADLs but easily redirected. Fall precautions in place,call light/personal items within reach. Will continue to monitor pt.
[2019-07-17 09:45] VITALS: BP 98/73
--- NOTE | 2019-07-17 10:22 | NUR ---
Folate level borderline low. Recommend start vitamin
--- NOTE | 2019-07-17 16:24 | NUR ---
CM VISITED WITH PT AGAIN THIS MORNING AND INDICATED THAT CARE TEAM ARE RECOMMENDING POST ACUTE CARE STAY. CM PROVIDED LIST OF FACILITIES TO REVIEW. CM INDICATED THAT CM HAD BEEN ABLE TO SPEAK WITH EBER HIS EX-. PT INIDCATED IT WAS OK FOR CM TO SHARE INFO WITH HER. CM INDICATED THAT CM HAD TOLD EBER ABOUT PT NEEDING POST ACUTE CARE STAY AND THAT SHE INDICATED SHE WOULD ASSIST PT IN SELECTING ONE. CM TO FOLLOW INDICATED WITH DC PLANNING.
[2019-07-17 17:00] VITALS: BP 141/69
--- NOTE | 2019-07-17 18:21 | HC ---
[facility] [place] [address] CONSULTATION Name: YUE NOONAN Room #: 437-P [facility] IN .R.#: [id number] Admission: 07/09/19 Attend Phys: Colleen Roe MD Discharge: Date of : 48 Report #: [id number] THIS REPORT FOR: //name// CC: APRIL physician/PCP Colleen ROBBINS PCP DATE OF SERVICE: 07/16/2019 CHIEF COMPLAINT: Traumatic injury to the left great toe with underlying peripheral arterial disease. HISTORY OF PRESENT ILLNESS: This is a 68-year-old male patient with a history of severe coronary artery disease and peripheral arterial disease, who was admitted to the hospital on 07/09/2019 after a fall. He apparently avulsed his left great toenail causing some bleeding and ulceration to the nail bed as well as sustained a nondisplaced bilateral sacral ala fractures. He has undergone angiography during his stay that demonstrated a chronic long segment heavily calcified occlusion of the left superficial femoral artery and upper popliteal artery that was unable to be recanalized. Suggestion was made that if revascularization were required that fem-pop bypass would be indicated. I was asked to evaluate his toe wound with regards to likelihood of healing or necessity of additional vascular surgical intervention. PAST MEDICAL HISTORY: Significant for coronary artery disease, severe peripheral arterial disease with multiple stents, tobacco abuse, COPD, hypertension, congestive heart failure, atrial fibrillation, chronic osteomyelitis of the foot, chronic thrombocytopenia secondary to alcohol abuse, hyperlipidemia, acute kidney injury, aspiration pneumonia, alcohol abuse, depression, previous subdural hematoma in 2014 and previous history of seizures. ALLERGIES: No known drug allergies. SOCIAL HISTORY: Positive for daily alcohol use and smoking cigarettes 1-1/2 packs per day for 40 years. FAMILY HISTORY: Noncontributory. REVIEW OF SYSTEMS: CONSTITUTIONAL: The patient denies fever, chills or weight loss. NEUROLOGICAL: The patient denies focal weakness. ENT: The patient denies earache, nasal drainage or sore throat. CARDIOVASCULAR: The patient denies chest pain or palpitations or diaphoresis. PULMONARY: The patient denies cough or shortness of breath. GASTROINTESTINAL: The patient denies nausea, vomiting, diarrhea or abdominal pain. [facility] [address] [place] [address] CONSULTATION Name: YUE NOONAN Room #: 437-P [facility] IN M.R.#: [id number] Admission: 07/09/19 Attend Phys: Colleen Roe MD Discharge: Date of : 48 Report #: [id number] ORTHOPEDIC: The patient does complain of some mild pelvic pain. Denies pain in his legs or foot. Other systems in a 14-point review of systems are negative. PHYSICAL EXAMINATION: VITAL SIGNS: At this time include temperature 36.4, pulse 80, respiratory rate 16, blood pressure 137/59. GENERAL: This is a somewhat chronically ill-appearing male patient who appears to be in no distress. HEENT: Head normocephalic. Nose and throat clear. NECK: Supple. LUNGS: Clear. ABDOMEN: Soft. Bowel sounds present. EXTREMITIES: Examination of the lower extremities demonstrates skin is pink, warm and dry with good capillary refill. The left great toenail is examined. The nail bed appears to be clean and granulating and showing new signs of epithelialization and no evidence of infection. No necrosis noted at this time. NEUROLOGIC: The patient is alert and oriented, moving all 4 extremities. LABORATORY DATA: White blood cell count 9.9 with hemoglobin of 14.1, hematocrit 42.2. Sodium 136, potassium 4.0, chloride 102, CO2 of 24, BUN 19, creatinine 1.1, glucose 108, total protein 7.1, albumin 3.1. INR is 1.0. CLINICAL IMPRESSION: 1. Traumatic wound to the left great toe nail bed, following avulsion of the great toenail. 2. Severe peripheral arterial disease. 3. History of ethanol abuse. 4. Chronic obstructive pulmonary disease. 5. Coronary artery disease. 6. Mild protein-calorie malnutrition. 7. Nondisplaced bilateral sacral ala fractures. RECOMMENDATIONS: At this point in time, I think local topical care to the left great toe would be appropriate, topical Xeroform gauze, covered by a Band-Aid would be very appropriate and likely this is going to go on to heal. The patient states that he does not wish to have any further invasive interventions and does not wish to have a surgical bypass of his legs. I think that at this point in time, the toe will heal, although he could certainly be in jeopardy in the future for nonhealing ulcerations or for worsening of his peripheral arterial disease. At this point, we will recommend nutritional support, continuation of current medications, physical therapy as he can tolerate. [address] [address] CONSULTATION Name: YUE NOONAN Room #: 437-P ADM IN M.R.#: [id number] Admission: 07/09/19 Attend Phys: Colleen Roe MD Discharge: Date of : 48 Report #: [id number] Reviewed findings with Dr. Scott. I appreciate being asked to see him in consultation. <ELECTRONICALLY SIGNED> By: Nils Barbosa MD 07/17/19 1821 [id number] Nils Barbosa MD /nt
--- NOTE | 2019-07-17 19:35 | NUR ---
Received pt from post op, 4 lap sites clean dry and intact. Admission done, IV fluids initiated. SCD's bilateral put on as well. Pt started on clear liquids and is tolerating well. POC followed. vs stable no signs or verbalizations of distress have been noted.
[2019-07-17 19:44] VITALS: BP 136/57
--- NOTE | 2019-07-17 19:48 | NUR ---
Assumed pt care this am still fussy and resistant to any activity that PT or OT would offer, was able to cnovince pt to have a sponge bath with OT. Pt is alert to self and place bout would forget recent events. Uses the urinal but would miss an be incontinent at times and not know or call. Had an accidental BM while working with PT today in the am. Wound care done, POC followed pt denies any pain and not signs of distress have been noted.
--- NOTE | 2019-07-18 02:28 | NUR ---
ASSUMED CARE AROUND 1900. AXOX3. C/O L SHOULDER PAIN. UNABLE TO LIFE THE LUE. 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 XR IN AM. NO S/S ACUTE DISTRESS NOTED OR REPORTED AT THIS TIME. WILL CONT TO MONITOR FOR ANY CHANGES IN CONDITION.
[2019-07-18 07:25] VITALS: BP 149/70; BP 150/67
--- NOTE | 2019-07-18 15:48 | NUR ---
DISCHARGE PLANNING. PATIENT IS READY FOR DISCHARGE. POST ACUTE RECOMMENDED. PATIENT REFERRAL FAXED TO [facility] PER REQUEST. CALL PLACED TO JANET TO NOTIFY. JANET TO REVIEW AND NOTIFY.
--- NOTE | 2019-07-18 16:10 | NUR ---
DISCHARGE PLANNING. PATIENT IS READY FOR DISCHARGE TODAY. PATIENT REFERRAL FAXED TO [facility] OF [facility] PER REQUEST. CALL RECEIVED FROM JANET STATING THAT THEY ARE UNABLE TO ACCEPT PATIENT BACK TO [facility]. UNIT SW NOTIFIED.
--- NOTE | 2019-07-18 17:01 | NUR ---
dpoa paperwork completed with ex-. on chart. referral sent to [facility] won't accept. will reach out to exwife to find out where else they want referrals sent.
[2019-07-18 18:44] VITALS: BP 141/51
[2019-07-18 19:50] VITALS: BP 113/41
--- NOTE | 2019-07-18 20:12 | NUR ---
Assumed pt care today, vs have been stable and has a better appetite today. Fluids encouraged. Pt was able to wotk withj PT and walk the halls. Pt is still incontinent of both bowel and bladder. Ex came in worked with CM to be the DPOA , awaiting placement at this point. No signs or verbalizations of distress have been noted, Pt is still confused but pleasant. POC gerawed, endorsed the ex-wifes contact number to the nurse.
--- NOTE | 2019-07-19 03:12 | NUR ---
ASSUMED CARE ISAÍAS 193. AXOX2. NO S/S ACUTE DISTRESS NOTED OR REPORTED AT THIS TIME. WILL CONT TO MONITOR FOR ANY CHANGES IN CONDITION.
[2019-07-19 08:00] VITALS: BP 134/54
[2019-07-19 13:51] VITALS: BP 117/51
--- NOTE | 2019-07-19 17:45 | NUR ---
Assumed patient care at 0715. Patient has complained of pain, level five but has not wanted pain medication because the pain is relieved by repositioning. Vital signs have been stable, lung sounds are diminished with Rhonchi noted in the right garcia. Patient is alert et oriented x's 2. He is incontinent of urine; matheus care has been completed upon each incontinent episode; skin is clean, warm, dry et intact. Patient has been transferring from bed to chair with assist x's 1. He consumed 90% of breakfast and 100% of lunch; he refused dinner. IV in right forearm is patent. Will continue to monitor.
[2019-07-19 20:38] VITALS: BP 141/53
--- NOTE | 2019-07-20 04:35 | NUR ---
ASSUMED CARE OF PT @1915. PT A&O BUT CONFUSED. INSERTED NEW IV TO LEFT FOREARM. PT SLEPT IN CHAIR FOR HALF OF THE NIGHT, THEN TRANSFERED BACK TO BED WITH STANDBY ASSIST AND A WALKER. PT USES THE URINAL AND CAN BE INCONT. FALL PREC IN PLACE. CALL LIGHT WITHIN REACH AND EDUCATION WAS DONE ON USING THE CALL CAMPOS. V/S STABLE. NO S/S OF DISTRESS. NO C/O PAIN. WILL CONT TO MONITOR
[2019-07-20 07:27] VITALS: BP 123/57
--- NOTE | 2019-07-20 07:56 | HC ---
[facility] [place] [place] [address] CONSULTATION Name: YUE NOONAN Room #: 437-P [facility] IN M.R.#: [id number] Admission: 07/09/19 Attend Phys: Colleen Roe MD Discharge: Date of : 48 Report #: [id number] THIS REPORT FOR: //name// CC: [facility] physician/PCP Colleen ROBBINS PCP DATE OF SERVICE: 07/14/2019 We were asked to see the patient after a catheterization by Dr. Dugan. The patient has lower extremity arterial occlusive disease with total occlusion of the left superficial femoral artery. I am unable to see the complete study to know whether there is any target below this. The patient was admitted here on 07/09/2019 after a fall. The patient had a nondisplaced bilateral sacral alar fracture and this was the reason for admission. We note that there is observation of nonhealing lesion of the left great toe with a question of osteo in that region. PAST MEDICAL HISTORY: Significant for coronary artery disease. The patient has had coronary artery bypass and stent placement. The patient also has chronic obstructive pulmonary disease, hypertension, heart failure. Previous echo 2014 showed a left ventricular systolic function of ejection fraction 40-45%. The patient also has a history of atrial fibrillation. MEDICATION: According to the record, there were no reported or known home medications. ALLERGIES: None known. SOCIAL HISTORY: The patient uses 1-1/2 packs of tobacco a day and has for 40 years. Alcohol use is daily. REVIEW OF SYSTEMS: CONSTITUTIONAL: Denies fever or chills. EYES: Wears glasses. HEENT: Denies headache or dizziness. RESPIRATORY: Denies cough, shortness of breath. CARDIAC: Denies chest pain. GASTROINTESTINAL: Denies nausea, vomiting, abdominal pain. GENITOURINARY: Denies urgency or frequency. MUSCULOSKELETAL: Admits to back pain, joint pain, leg pain and stiffness. SKIN: Admits to bruising and abrasion. NEUROLOGIC: Denies weakness, dizziness, loss of consciousness. PSYCHIATRIC: Denies anxiety or depression. ENDOCRINE: Denies goiter or tremors. [facility] [address] [place] [address] CONSULTATION Name: SARAN,YUE Room #: 437-P ADM IN M.R.#: [id number] Admission: 07/09/19 Attend Phys: Colleen Roe MD Discharge: Date of : 48 Report #: [id number] HEMATOLOGIC: Denies anemia or coagulopathy. PHYSICAL EXAMINATION: GENERAL: The patient is lying in bed, seems comfortable and has no complaints. VITAL SIGNS: Temperature 36.4, heart rate 87, respiratory rate 18, blood pressure of 97/74 and was 138/60 previously a short time or earlier. HEENT: No scleral icterus, no arcus. NECK: No mass, no bruit. CHEST: Clear to auscultation. HEART: Rhythm regular, no murmurs audible. ABDOMEN: Soft, no mass. EXTREMITIES: 2+ femoral pulses bilaterally, 1+ right popliteal pulse. I do not feel a left popliteal pulse. No clubbing, cyanosis or edema. Bandage over left great toe covering nonhealing lesion. Rest of the foot looks fine. NEUROLOGIC: No obvious motor or sensory dysfunction. PSYCHIATRIC: The patient seems to be comfortable, answers questions appropriately and is eager to go home and is questioning why he needs a Vascular consultation. IMPRESSION: The patient has chronic left superficial femoral arterial occlusive disease. Undoubtedly, there is other occlusive disease, but I am unable to see the full angiogram to know whether there was a distal target. At this point, the patient seems to be comfortable with his lot and is not eager to pursue any aggressive treatment, but I will review with the others. This certainly seems to be a chronic situation and one that can be managed as an outpatient. Thank you for the consult. <ELECTRONICALLY SIGNED> By: Nicholas Scott MD 07/20/19 0756 [id number] Nicholas Scott MD /nt
--- NOTE | 2019-07-20 14:59 | NUR ---
Assumed pt care this am, pt denies pain but expressed this is only experienced when he moves. Pt refused a bath and to get out of the bed today. Pt is incontinent but would use the urinal and would miss at times. Pt mentioned that his ex Fern took his cards and a grand worth of de jesus, and all he wanted was for her to bring the things he needed. 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 DPOA (Fern) is aware, and would like to know why admission was denied to [facility]. will endorse to the night nurse. POC followed no signs or verbalizations of distress have been noted.
[2019-07-20 15:37] VITALS: BP 127/63
[2019-07-20 19:29] VITALS: BP 139/56
--- NOTE | 2019-07-21 04:01 | NUR ---
ASSUMED CARE FROM DAY SHIFT PT CALM COOPERATIVE THROUGHOUT SHIFT DENIES PAIN , PT RESTED WELL THROUGHOUT HOURLY ROUNDS WILL CONITNUE WITH CURRENT PLAN OF CARE.
[2019-07-21 07:35] VITALS: BP 143/60
[2019-07-21] MEDS ORDERED: CLOPIDOGREL75 MG PO (07:57)
[2019-07-21] MEDS ORDERED: FLOMAX0.4 MG PO (07:57)
[2019-07-21] MEDS ORDERED: PANTOPRAZOLE SO40 M1 PO (07:58)
[2019-07-21] MEDS ORDERED: FINASTERIDE5 MG PO (07:58)
--- NOTE | 2019-07-21 11:59 | NUR ---
discharge planner sent referral to [facility], patient ready to dc today. DP will call to make certain they received referral.
--- NOTE | 2019-07-21 15:34 | NUR ---
CM FOLLOWED UP WITH PT'S DPOA THIS AM AND INDICATED THAT [facility] CAN'T ACCEPT PT. SHE ASKED THAT REFERRAL BE SENT TO [facility]. REFERRAL WAS SENT AND THEY NOTIFIED CM THAT THEY WERE A NON SMOKING FACILITY. THEY CALLED PT'S EX AND SHE INDICATED THAT THEY BEING A NON SMOAKING FACILITY WAS A DEAL BREAKER PT WAS REALLY NEEDING TO SMOKE. CM INDICATED THAT THE ONLY FACILITIES THAT ALLOW SMOAKING ARE THE [facility] AND [facility]. CM LEFT HER A VM INDICATED THAT AND HAVEN'T RECEIVED A RESPONSE OF THIS NOTE. CM TO FOLLOW INDICATED WITH DC PLANNING.
[2019-07-21 15:44] VITALS: BP 126/51
--- NOTE | 2019-07-21 19:51 | NUR ---
ASSUMED CARE OF PATIENT AT 0715, PATIENT ALERT AND CAN BE FORGETFUL, AND NIGHTMUTE. PATIENT DENIES PAIN THIS SHIFT. PATIENT HASLEFT FOREARM IV IN PLACE, RECEIVED THIAMINE IVPB. PATIENT VOIDS PER URINAL, BUT CAN BE INCONTINENT OF BOWEL AND SPILLS URINE IN BED. BANDAID TO LEFT GREAT TOE, TOE NAIL OFF. NICOTINE PATCH APPLIED TO LEFT ARM. DISCHARGE ORDER IN, BUT WAITING ON PLACEMENT, EX- NEEDS TO HELP PATIENT WITH FINDING FACILITY, [facility] REFUSED PLACEMENT. PATIENT HAS BEEN CALM DURING THE SHIFT, NO AGGRESIVE BEHAVIOR NOTED. WILL CONTINUE TO MONITOR.
[2019-07-21 19:59] VITALS: BP 127/54
[2019-07-22 00:30] VITALS: BP 127/54
--- NOTE | 2019-07-22 05:03 | NUR ---
PATIENT REMAINS IN BED DURING PATIENT CARE AND ASSESSMENT. PATIENT SELDOM CALLS OUT FOR HELP TO USE THE URINAL AND OFTEN HAS INCONTINENCE SPELLS. HE IS DROWSY AND "JUST WANTS TO SLEEP", AND SEEMS BOTHERED BY ANY INTURRUPTIONS IN HIS REST. TONIGHT WE DID EMPTY HIS URINALS, BUT THIS BEHAVIOR IS NOT CONSISTENT. WILL CONTINUE TO MONITOR AND DO ROUNDING ON PATIENT TO ENSURE PATIENT IS KEPT DRY.
[2019-07-22 08:19] VITALS: BP 126/66
[2019-07-22 14:34] VITALS: BP 137/70
--- NOTE | 2019-07-22 16:55 | NUR ---
cm visited with pt at bedside about waiting [facility]. pt stated so going kick out or take me to curb. education that will not do that and see what [facility] says. dr nicole made visit as well. pt wanted to call ex-, he did so and had cm speak with her. education on dcp with [facility]. "thank you if need me or hear from [facility] call darnell at [phone]"/ex . information passed on to bedside nurse.
--- NOTE | 2019-07-22 18:20 | NUR ---
PT ASSESSED AT START OF SHIFT. AFFECT FLAT BUT COOPERATIVE. REPOSTIONS HIMSELF IN BED. USING URINAL AT THE BEDSIDE. AMBULATED THE HALLS USING WALKER AND DID WELL. STATES NO PAIN. RT GREAT TOENAIL DSNG DC'D PER WOUND CARE NAILBED DRIED AND LOOKS GOOD. STILL WORKING ON FACILITY FOR DISCHARGE.
[2019-07-22 19:12] VITALS: BP 123/48
[2019-07-22 22:42] VITALS: BP 123/48
--- NOTE | 2019-07-23 05:39 | NUR ---
PATIENT WAS DRY UPON FIRST ASSESSMENT. HIS URINAL WAS FULL OF URINE. PATIENT WAS PLEASANT AND COOPERATIVE. WHEN ROUNDING, PATIENT CONTINUED TO BE DRY AND USING URINAL. DENIES PAIN. FALL PRECAUTIONS IN PLACE. WILL CONTINUE TO MONITOR.
[2019-07-23 06:19] LABS: ABSOLUTE NEUTROPHILS 5.3 thou/uL (1.4-8.2); BASOPHILS 0.8 % (0.0-2.0); EOSINOPHILS 3.1 % (0.0-3.0); HEMATOCRIT 41.1 % (42.0-52.0); HEMOGLOBIN 13.4 gm/dL (14.0-18.0); LYMPHOCYTES 21.2 % (24.0-44.0); MCH 30.1 pg (26.0-34.0); MCHC 32.6 g/dL (28.0-37.0); MCV 92.3 fL (80.0-100.0); MONOCYTES 8.9 % (1.0-8.0); PLATELET COUNT 241 thou/uL (150-400); RBC 4.45 mil/uL (4.50-6.00); RDW 14.7 % (10.5-14.5); WBC 8.1 thou/uL (4.0-11.0)
[2019-07-23 06:26] LABS: CALCIUM 8.9 mg/dL (8.5-10.1); CREATININE 1.2 mg/dL (0.7-1.3); POTASSIUM 4.2 mmol/L (3.5-5.1)
[2019-07-23 07:17] VITALS: BP 129/71
[2019-07-23] MEDS ORDERED: NICOTINE TRANSD21 M1 TRANSDERM (13:24)
--- NOTE | 2019-07-23 14:08 | NUR ---
REFERRAL WAS RESENT TO [facility] PER PT AND DPOA'S REQUEST. THEY INDICATED THEY CAN ACCEPT PT FOR SHORT TERM SKILLED REHAB STAY BUT THEY CAN'T KEEP PT LTC [place] MEDICAID PENDING. THEY INDICATED THAT THEY NEED AN ORDER FOR A SMOKING CESSATION PATCH. CM NOTIFIED PT'S EX AND SHE IS AGREEABLE BUT ANNOYED ABOUT PT GOING TO ONCE FACILITY ([facility]) AND THEN NEEDING TO GO SOMEWHERE ELSE FOR AL, RCF, LTC. CM INDICATED THAT THEY COULD LOOK AT [facility] DPOA IS TO TOUR. FACE SHEET SENT TO [employer] FOR THEM TO ASSIST WITH [place] MEDICAID [place]. ORDERS COMPLETED. CHART COPY MADE. REPORT TO BE CALLED TO . WHEELCHAIR [facility]AN [employer]SPORT ARRANGED FOR 1500. NO OTHER CM INTERVENTION INDICATED. CASE CLOSED.
--- NOTE | 2019-07-23 14:34 | NUR ---
report called to Ericka at [facility]. iv removed at this time. pressure held to iv site, no bleeding, bandaid applied with gauze.
--- NOTE | 2019-07-23 14:43 | NUR ---
ASSUMED CARE AT 0700. PT A&OX3. PT CAN BE FORGETFULL AT TIMES. PT FOLLOWING COMMANDS. PT HAS URINAL AT BEDSIDE AND WAS INSTRUCTED TO CALL STAFF WHEN HE NEEDS TO URINATE OR HAVE A BOWEL MOVEMENT. PT USED URINAL IN BED WITH NO ASSISTANCE HOWEVER PT WAS TURNED AND REPOSITIONED BY STAFF AND PT WAS INCONTINENT OF BOWEL AND BLADDER. PT CLEANED AND NEW LINEN PROVIDED. PT WAS UNAWARE THAT HE HAD BEEN INCONTINENT.
--- NOTE | 2019-07-29 17:42 | HC ---
[facility] [place] [place] [address] CONSULTATION Name: YUE NOONAN Room #: 453-P [facility] IN M.R.#: [id number] Admission: 07/09/19 Attend Phys: Colleen Roe MD Discharge: 07/23/19 Date of : 48 Report #: [id number] THIS REPORT FOR: //name// CC: APRIL physician/PCP Colleen ROBBINS PCP DATE OF SERVICE: 07/12/2019 HISTORY OF PRESENT ILLNESS: This patient was admitted after a fall that occurred at home. The patient explains that he fell on a wet bathroom floor. There have been some question about him being depressed, but he emphasizes that he is not depressed; "I am pissed." He feels that the injury to his back has not been taken seriously, fully worked up or fully communicated back to him. "Instead, they are talking about stents and blood pressure and many other things." The patient explains that he has not seen a physician in a number of years and is not on any medications at home. During our conversation, he does not always appear to be a reliable informant. He does seem far more comfortable when discussing events from decades passed. PAST PSYCHIATRIC HISTORY: The patient denies. ALLERGIES: No known medication allergies. CURRENT MEDICATIONS: Finasteride 5 mg daily, Flomax 0.4 daily, vitamin B 100 daily, nicotine patch 21 mg daily, vitamin D 50,000 units weekly, Ativan detox protocol. SOCIAL HISTORY: He lives with his younger sister. From what I understand, younger sister is named as a healthcare power of attorney general, but this has never had to be activated. The patient denies alcohol use, but he has admitted to consuming a pint a day in an earlier note from this admission, and during a hospital stay in January of this year his blood alcohol level was 332 on admission. PAST MEDICAL HISTORY: He has history of hypertension and coronary artery disease. He actually had a number of stents placed in the past, but now has not had any medical followup in a number of years. He has COPD. He has chronic thrombocytopenia. There is a recent fall with back injury. MENTAL STATUS EXAMINATION: male, ectomorphic build, casually dressed, slightly irritable. No suicidal ideation, no homicidal ideation. No hallucinations, no delusions. Insight and judgment limited. DIAGNOSIS: Mild cognitive impairment versus dementia, adjustment disorder with depressed mood. [facility] [address] [place] [address] CONSULTATION Name: YUE NOONAN Room #: 453-P [facility] IN M.R.#: [id number] Admission: 07/09/19 Attend Phys: Colleen Roe MD Discharge: 07/23/19 Date of : 48 Report #: [id number] RECOMMENDATIONS: He is not a very reliable informant. Some of the confusion could certainly be related to alcohol withdrawal, so we will continue to monitor for this. It may also be a good idea to get collateral information from his sister; it is possible the healthcare power of attorney general will need to be activated, especially if there is a complex decision that needs to be made which he does not understand. Importantly, it appears he is not really retaining the information given to him with respect to his injury and plans for treatment. <ELECTRONICALLY SIGNED> By: Ángela White MD 07/29/19 1742 [id number] 0034 Moody Velasquez MD /nt
--- NOTE | 2019-08-06 14:25 | HC ---
[facility] [place] [address] CONSULTATION Name: YUE NOONAN Room #: 453-P [facility] IN ..#: [id number] Admission: 07/09/19 Attend Phys: Colleen Roe MD Discharge: 07/23/19 Date of : 48 Report #: [id number] THIS REPORT FOR: //name// CC: APRIL physician/PCP Colleen ROBBINS PCP DATE OF SERVICE: 07/10/2019 REASON FOR CONSULTATION: Bilateral sacral ala fractures. HISTORY OF PRESENT ILLNESS: The patient is a 68-year-old male who slipped on some water, fell backwards onto his buttocks and complained of immediate pain. He crawled into another room or somebody helped him into a chair. He denies numbness or tingling in his extremities. Denies any other extremity pain. REVIEW OF SYSTEMS: MUSCULOSKELETAL: See HPI. Also, note a left toe wound. NEUROLOGIC: Denies numbness or tingling to his extremities. PAST MEDICAL HISTORY: Significant for coronary artery disease, severe peripheral vascular disease, COPD, hypertension, congestive heart failure, tobacco abuse. ALLERGIES: No known drug allergies. MEDICATIONS: None. SOCIAL HISTORY: Lives with his little sister. Uses a cane for ambulation. Smokes 3/4 of a pack of cigarettes a day. Drinks alcohol occasionally per the patient during this discussion today. LABORATORY STUDIES: Done on the date of admission show white blood cell count 12.7, hemoglobin 15.7, hematocrit 47.5, platelet count 107. INR is 1. Chemistry is grossly normal. PHYSICAL EXAMINATION: GENERAL: The patient is alert and oriented. He converses and interacts appropriately with me. He is well-developed, well-nourished, but slightly thin male in no acute distress. VITAL SIGNS: Most recent vital signs show temperature of 36.3 degrees centigrade, heart rate 68, respiratory rate 20, blood pressure 143/54 and pulse oximetry 94% on room air. EXTREMITIES: Examination of his bilateral upper extremities, he has some bruising. Skin is grossly intact. Motor and sensory intact. He moves his upper extremities without pain and within functional range. [facility] [address] [place] [address] CONSULTATION Name: YUE NOONAN Room #: 453-P [facility] IN M.R.#: [id number] Admission: 07/09/19 Attend Phys: Colleen Roe MD Discharge: 07/23/19 Date of : 48 Report #: [id number] Bilateral lower extremity exam: Sensation is intact to light touch throughout. EHL, FHL, dorsiflexion and plantar flexion are intact. He has a bandage on the left toe, which he did not want me to remove as he reports that the bandages just in placed. There is no tenderness to palpation throughout the entire bilateral lower extremities. No pain with range of motion of the hips, knees, ankles or feet. He reported tenderness only to the bilateral pelvis. RADIOGRAPHS: AP pelvis and CT scan of the pelvis showed prior trochanteric fixation nail to the left hip with apparent healing. No lucency of the hardware and nondisplaced bilateral sacral ala fractures. IMPRESSION AND PLAN: Bilateral sacral ala fractures and a low energy trauma. We discussed these are stable fractures. He may be weightbearing as tolerated. I encouraged ambulation or decrease complications from being sedentary including blood clots and ulcers as well as deconditioning. Questions were encouraged and answered to the best of my ability. He can follow up with me or one of my [facility] partners in 2-3 weeks. I will sign off. Please call if needed. <ELECTRONICALLY SIGNED> By: Hanna Giles MD 08/06/19 [id number] [id number] Hanna Giles MD /nt
== END 2019-07-23 15:06 | DRG 551 ==
LOC: ER 12:50 → 4W 16:37 → EROBS 16:37 → 4W 17:34 → 4S 07-11 12:12 → 4W 07-21 11:13
PROVIDERS: Emergency Medicine Emergency Medical Services; Internal Medicine; Nurse Practitioner; ADMIT Internal Medicine
PROC: B4181ZZ Fluoroscopy of Bilateral Renal Arteries using Low Osmolar Contrast (ICD-10-PCS; principal; 2019-07-14)
PROC: B41G1ZZ Fluoroscopy of Left Lower Extremity Arteries using Low Osmolar Contrast (ICD-10-PCS; principal; 2019-07-14)
PROC: B4101ZZ Fluoroscopy of Abdominal Aorta using Low Osmolar Contrast (ICD-10-PCS; principal; 2019-07-14)
DX: S32.10XA Unspecified fracture of sacrum, initial encounter for closed fracture (principal); E43 Unspecified severe protein-calorie malnutrition; I50.20 Unspecified systolic (congestive) heart failure; Z68.1 Body mass index [BMI] 19.9 or less, adult; D69.6 Thrombocytopenia, unspecified; J44.9 Chronic obstructive pulmonary disease, unspecified; L97.529 Non-pressure chronic ulcer of other part of left foot with unspecified severity; E78.5 Hyperlipidemia, unspecified; I73.9 Peripheral vascular disease, unspecified; G40.909 Epilepsy, unspecified, not intractable, without status epilepticus; F32.9 Major depressive disorder, single episode, unspecified; F17.210 Nicotine dependence, cigarettes, uncomplicated; I25.10 Atherosclerotic heart disease of native coronary artery without angina pectoris; F10.10 Alcohol abuse, uncomplicated; M41.9 Scoliosis, unspecified; E55.9 Vitamin D deficiency, unspecified; I48.91 Unspecified atrial fibrillation; Z47.89 Encounter for other orthopedic aftercare; I77.89 Other specified disorders of arteries and arterioles; Z95.820 Peripheral vascular angioplasty status with implants and grafts; Z90.49 Acquired absence of other specified parts of digestive tract; Z71.6 Tobacco abuse counseling; Z95.1 Presence of aortocoronary bypass graft; Z95.5 Presence of coronary angioplasty implant and graft; W01.0XXA Fall on same level from slipping, tripping and stumbling without subsequent striking against object, initial encounter; Y93.89 Activity, other specified; Y92.098 Other place in other non-institutional residence as the place of occurrence of the external cause; Y99.8 Other external cause status
CPT/HCPCS: 10040; 10195